=== PATIENT | female | born 1995 | race Caucasian/White ===

== ENCOUNTER 2017-07-12 13:40 | Emergency (ER) | payer MEDICAID ==
[~2017-07-12] VITALS: Ht 157.5 cm; Wt 53.5 kg
[2017-07-12 14:04] VITALS: BP 116/83; Ht 157.5 cm; Wt 53.5 kg
== END 2017-07-12 15:05 | disposition home or self-care (01) ==
LOC: ED 13:40
DX: B34.9 Viral infection, unspecified (principal)